=== PATIENT | female | born 1985 | race Caucasian/White ===

== ENCOUNTER 2019-08-19 14:13 | Observation (INO) ==
[2019-08-19] MEDS ORDERED: ONDANSETRON 4 MG/2 ML VIAL ONE (15:13)
[2019-08-19] MEDS ORDERED: HYDROmorphone 2 MG/1 ML VIAL IV STA ×2 (15:14→17:28)
[2019-08-19] MEDS ORDERED: SODIUM CHLORIDE 0.9% 1,000 ML IV STA ×2 (15:14→20:06)
[2019-08-19] MEDS ORDERED: ONDANSETRON 4 MG/2 ML VIAL IV STA (15:14)
[2019-08-19] MEDS ORDERED: HYDROmorphone 2 MG/1 ML VIAL ONE (15:15)
[2019-08-19] MEDS ORDERED: PROMETHAZINE 25 MG/1 ML VIAL ONE (16:55)
[2019-08-19] MEDS ORDERED: PROMETHAZINE INJ 12.5 MG in SODIUM CHLORIDE 0.9% 50 ML IV STA (16:55)
[2019-08-19 17:01] LABS: Basophils % 0.3 % (0.0-0.8); Eosinophils % 0.2 % (0.00-10.9); Hematocrit 36.6 VOL% (35.7-47.0); Hemoglobin 12.2 GM/DL (12.0-16.0); Immature Granulocytes % 0.5 %; Immature Granulocytes Absolute 0.07 #; Lymphocytes # 2.4 10*3/uL (1.4-4.0); Lymphocytes % 15.9 % (21.3-54.2); Mean Corpuscular HGB Conc 33.3 GM/DL (32-36); Mean Corpuscular Volume 94.8 FL (87-102); Mean Platelet Volume 10.4 FL (9.6-12.0); Neutrophils % 78.1 % (38.7-73.9); Platelet Count 230 T/CUMM (130-400); Red Blood Count 3.86 MC/CUMM (3.8-5.5); Red Cell Distribution Width 12.3 % (9.3-17.3); White Blood Count 15.3 T/CUMM (4-12)
[2019-08-19 17:23] LABS: Alanine Aminotransferase 28 U/L (13-56); Albumin 3.7 G/DL (3.4-5.0); Alkaline Phosphatase 75 U/L (45-117); Amylase 45 U/L (25-115); Aspartate Amino Transferase 14 U/L (0-37); Blood Urea Nitrogen 13 MG/DL (7-18); Calcium 8.6 MG/DL (8.5-10.1); Estimated Glom Filtration Rate 87 ML/MIN; Glucose 129 MG/DL (74-106); Osmolality,Calculated 282.3 MOS/KG (273-304); Total Protein 7.3 G/DL (6.4-8.3)
[2019-08-19] MEDS ORDERED: PIPERACILLIN/TAZOBACTAM 3,375 MG in SODIUM CHLORIDE 0.9% 100 ML IV STA (17:28)
[2019-08-19] MEDS ORDERED: TAMSULOSIN 0.4 MG CAPSULE PO STA (20:06)
[2019-08-19] MEDS ORDERED: HYDROmorphone 2 MG/1 ML VIAL IV PRN (20:10)
[2019-08-19] MEDS ORDERED: hydrALAZINE 20 MG/1 ML VIAL IV PRN (20:11)
[2019-08-19] MEDS ORDERED: guaiFENesin/DM ER 600-30 MG TABLET PO PRN (20:12)
[2019-08-19] MEDS ORDERED: ZALEPLON 5 MG CAPSULE PO PRN (20:12)
[2019-08-19] MEDS ORDERED: DOCUSATE SODIUM 100 MG CAPSULE PO PRN (20:12)
[2019-08-19] MEDS ORDERED: ONDANSETRON 4 MG/2 ML VIAL IV PRN (20:12)
[2019-08-19] MEDS ORDERED: ACETAMINOPHEN 325 MG TABLET PO PRN (20:12)
[2019-08-19] MEDS ORDERED: PROMETHAZINE 25 MG TABLET PO PRN (20:12)
[2019-08-19] MEDS ORDERED: ENOXAPARIN 40 MG/0.4 ML SYRINGE SUBCUT SCH (21:00)
[2019-08-19] MEDS: VANCOMYCIN INJ 1,250 MG in SODIUM CHLORIDE 0.9% 250 ML IV SCH (22:02)
[2019-08-19 22:49] LABS: Apearance,Urine CLEAR (Clear); Bacteria,Urine Occasional /HPF (Few); Bilirubin,Urine Negative (Negative); Blood, Urine Small mg/dL (Negative); Glucose,Urine (UA) Negative (Negative); Ketones,Urine Negative (Negative); Nitrite,Urine Negative (Negative); Protein,Urine Negative; RBC,Urine 46 /HPF (0-4); Squamous Epithelial Cell,Urine Occasional /HPF (0-10); Urine Color Straw (Yellow); Urine Specific Gravity 1.058 (1.001-1.035); Urine Urobilinogen < 2.0 EU/DL (0.2-1.0); WBC,Urine 1 /HPF (0-6)
[2019-08-19] MEDS: MEROPENEM 500 MG in SODIUM CHLORIDE 0.9% 100 ML IV SCH (23:30)
[2019-08-19] MEDS: SODIUM CHLORIDE 0.9% 1,000 ML IV SCH (23:45)
[2019-08-20 06:07] LABS: Calcium 7.7 MG/DL (8.5-10.1)
[2019-08-20] MEDS: MEROPENEM 500 MG in SODIUM CHLORIDE 0.9% 100 ML IV SCH (06:13)
[2019-08-20 08:24] LABS: Basophils % 0.2 % (0.0-0.8); Eosinophils # 0.1 10*3/uL (0.0-0.87); Eosinophils % 0.7 % (0.00-10.9); Hematocrit 34.5 VOL% (35.7-47.0); Hemoglobin 11.1 GM/DL (12.0-16.0); Immature Granulocytes % 0.4 %; Immature Granulocytes Absolute 0.04 #; Lymphocytes # 1.7 10*3/uL (1.4-4.0); Lymphocytes % 15.8 % (21.3-54.2); Mean Corpuscular HGB Conc 32.2 GM/DL (32-36); Mean Corpuscular Volume 98.9 FL (87-102); Mean Platelet Volume 10.9 FL (9.6-12.0); Neutrophils % 78.9 % (38.7-73.9); Platelet Count 205 T/CUMM (130-400); Red Blood Count 3.49 MC/CUMM (3.8-5.5); Red Cell Distribution Width 12.6 % (9.3-17.3)
[2019-08-20] MEDS ORDERED: KETOROLAC 30 MG/1 ML VIAL IV PRN (08:28)
[2019-08-20] MEDS ORDERED: PANTOPRAZOLE 40 MG TABLET PO SCH (09:00)
[2019-08-20] MEDS ORDERED: TAMSULOSIN 0.4 MG CAPSULE PO SCH (09:00)
[2019-08-20] MEDS: VANCOMYCIN INJ 1,250 MG in SODIUM CHLORIDE 0.9% 250 ML IV SCH (09:11)
[2019-08-20] MEDS ORDERED: cefTRIAXone 2,000 MG in SYRINGE 1 EACH IV SCH (10:00)
[2019-08-20] MEDS: SODIUM CHLORIDE 0.9% 1,000 ML IV SCH (10:35)
[2019-08-20 12:38] VITALS: BP 105/52
== END 2019-08-20 13:50 | disposition home or self-care (01) ==
LOC: N.ED 14:13 → N.EDINP 14:13 → SUATTDRO 20:12 → N.2W 20:45
PROVIDERS: ADMIT Internal Medicine; ATTEND Internal Medicine